=== PATIENT | male | born 1970 | race Caucasian/White ===

== ENCOUNTER → 2019-08-28 | Outpatient (CLI) | payer BC ==
[~2019-08-28] MED LIST: CARI350T PO; HYDR-3720 PO; HYDR2TAB31 PO; LISI10TA2 PO; MONT10TA21 PO
--- NOTE | 2019-08-28 09:12 | Diagnostic Imaging Report ---
INDICATION: Bilateral knee pain for the past approximately 6 months. Difficulty walking. Swelling. TECHNIQUE: 4 views of the bilateral knees CORRELATION STUDY: None FINDINGS: The joint spaces are maintained. The articular surfaces are smooth and preserved. There is no acute bony abnormality. Soft tissues are unremarkable. IMPRESSION: 1. Unremarkable examination bilateral knees. Dictated by: Dictated on workstation # [id number]
== END ==
LOC: RAD 07:34
PROVIDERS: ATTEND Neuromusculoskeletal Medicine & OMM
DX: M25.561 Pain in right knee (principal); M25.562 Pain in left knee